=== PATIENT | female | born 1960 | race Caucasian/White ===

== ENCOUNTER 2020-06-28 08:50 | Outpatient (CLI) | payer OTHER ==
[2020-06-28 09:09] LABS: Basophils % (Auto) 0.5 % (0.0-1.8); Eosinophils # (Auto) 0.1 K/mm3 (0.0-0.4); Eosinophils % (Auto) 1.4 % (0.0-4.3); Hematocrit 38.2 % (30.3-42.9); Hemoglobin 13.3 gm/dl (10.1-14.3); Lymphocytes # (Auto) 2.4 K/mm3 (1.2-5.4); Lymphocytes % (Auto) 30.6 % (13.4-35.0); Mean Corpuscular HGB Conc 35 % (30-34); Mean Corpuscular Volume 92 fl (79-97); Monocytes # (Auto) 0.6 K/mm3 (0.0-0.8); Monocytes % (Auto) 7.8 % (0.0-7.3); Platelet Count 327 K/mm3 (140-440); Red Blood Count 4.14 M/mm3 (3.65-5.03); Red Cell Distribution Width 13.2 % (13.2-15.2)
[2020-06-28 09:39] LABS: Alanine Aminotransferase 19 units/L (7-56); Albumin 4.1 g/dL (3.9-5); Blood Urea Nitrogen 15 mg/dL (7-17); Calcium 8.9 mg/dL (8.4-10.2); Chol/HDL Ratio 2.66 %; HDL Cholesterol 63 mg/dL (40-59); Hemolysis Index 7; LDL Cholesterol,Direct 110 mg/dL (50-130)
[2020-06-28 09:43] LABS: BUN/Creatinine Ratio 25
== END 2020-06-28 08:51 | disposition home or self-care (01) ==
LOC: LAB 08:50
PROVIDERS: ATTEND Internal Medicine
DX: Z00.00 Encounter for general adult medical examination without abnormal findings (principal); Z13.29 Encounter for screening for other suspected endocrine disorder; Z13.220 Encounter for screening for lipoid disorders; E55.9 Vitamin D deficiency, unspecified; R20.2 Paresthesia of skin
CPT/HCPCS: 36415; 80053; 80061; 82306; 82607; 83036; 84443; 85025

== ENCOUNTER 2020-07-01 09:51 | Outpatient (CLI) | payer OTHER ==
--- NOTE | 2020-07-01 14:45 | Mammography Report ---
DIGITAL SCREENING MAMMOGRAM WITH CAD, 07/01/2020 CLINICAL INFORMATION / INDICATION: Routine screening TECHNIQUE: Digital bilateral 2D mammography was obtained in the craniocaudal and mediolateral obliqu e projections. This examination was interpreted with the benefit of Computer-Aided Detection analysis . COMPARISON: None available FINDINGS: Breast Density: The breasts are extremely dense, which lowers the sensitivity of mammography. No dominant mass, suspicious calcifications, or architectural distortion in either breast. Benign-appearing bilateral calcifications are seen. Small intramammary node is seen on the right. IMPRESSION: No mammographic evidence of malignancy. Follow up recommendation: Routine yearly BI-RADS Category 2: Benign. A "normal" or negative report should not discourage follow up or biopsy of a clinically significant f inding. A written summary of these findings will be mailed to the patient. The patient will be entered into a mammography reporting system which will generate a reminder letter for the patient's next appointmen t at the appropriate interval. The [employer] recommends yearly mammograms starting at age 40 and continuing as l edy as a woman is in good health. Breast MRI is recommended for women with an approximate 20-25% or greater lifetime risk of breast cancer, including women with a strong family history of breast or ova chio cancer or who have been treated for Hodgkin's disease. Signer Name: Alexandro Mack MD Signed: 07/01/2020 2:41 PM Workstation Name: [id number]
== END 2020-07-01 09:52 | disposition home or self-care (01) ==
LOC: SPVWC 09:51
PROVIDERS: ATTEND Internal Medicine
DX: Z12.31 Encounter for screening mammogram for malignant neoplasm of breast (principal); N64.89 Other specified disorders of breast
CPT/HCPCS: 77067

== ENCOUNTER 2020-11-06 11:17 | Outpatient (CLI) | payer OTHER ==
[2020-11-06 12:04] LABS: Blood Urea Nitrogen 13 mg/dL (7-17); Calcium 8.7 mg/dL (8.4-10.2); Hemolysis Index 7
[2020-11-06 12:09] LABS: BUN/Creatinine Ratio 26
== END 2020-11-06 11:18 | disposition home or self-care (01) ==
LOC: LAB 11:17
PROVIDERS: ATTEND Internal Medicine
DX: E87.6 Hypokalemia (principal)
CPT/HCPCS: 36415; 80048

== ENCOUNTER 2020-11-09 15:22 | Emergency (ER) | payer OTHER ==
[2020-11-09] MEDS ORDERED: SODIUM CHLORIDE 0.9% 1000 ML 1,000 ML IV ONE (19:17)
--- NOTE | 2020-11-09 19:18 | Emergency Department Report ---
ED Abdominal Pain HPI - General Chief Complaint: Abdominal Pain Stated Complaint: ABD PAIN Time Seen by Provider: 11/09/20 19:12 Source: patient Mode of arrival: Ambulatory Limitations: No Limitations - History of Present Illness Initial Comments: 60-year-old female presents to the ER today with complaints of upper abdominal pain. She states that her symptoms started last week. She reports associated abdominal bloating. That she has not had any diarrhea, she has not had any nausea or vomiting and she has not been constipated. Last time she had a bowel movement was this morning and it was normal. She denies any melena, hematochezia or mucus in her stool. She denies any associated chest pain or shortness of breath, fever or chills. She is unable to give any modifying factors for her pain. Her past abdominal surgeries include appendectomy and C- sections. She also had a colonoscopy September 2016 and that was normal. MD Complaint: abdominal pain -: week(s) (1) - Related Data Previous Rx's Medication Instructions Recorded Last Taken Type Hyoscyamine Subl [Levsin Sl 0.125 0.125 mg SL Q6HR PRN #12 tab 11/09/20 Unknown Rx TAB] Allergies Allergy/AdvReac Type Severity Reaction Status Date / Time No Known Allergies Allergy Unverified 06/28/20 08:51 ED Review of Systems ROS: Stated complaint: ABD PAIN Other details as noted in HPI Comment: All other systems reviewed and negative Constitutional: denies: chills, fever Eyes: denies: eye pain, eye discharge, vision change ENT: denies: ear pain, throat pain, dental pain, hearing loss, epistaxis, congestion Respiratory: denies: cough, shortness of breath, SOB with exertion, SOB at rest, wheezing Cardiovascular: denies: chest pain, palpitations, dyspnea on exertion, edema, syncope, paroxysmal nocturnal dyspnea Gastrointestinal: abdominal pain. denies: nausea, vomiting, diarrhea, constipation, hematemesis, hematochezia Genitourinary: denies: urgency, dysuria, frequency, hematuria, discharge, abnormal menses, dyspareunia Musculoskeletal: denies: back pain, joint swelling, arthralgia Skin: denies: rash, lesions, change in color, change in hair/nails, pruritus Neurological: denies: headache, weakness, paresthesias, confusion, abnormal gait, vertigo Psychiatric: denies: anxiety, depression, auditory hallucinations, visual hallucinations, homicidal thoughts, suicidal thoughts Hematological/Lymphatic: denies: easy bleeding, easy bruising, swollen glands ED Past Medical Hx - Past Medical History Previous Medical History?: Yes Additional medical history: Abd pain - Surgical History Past Surgical History?: Yes Hx Appendectomy: Yes Additional Surgical History: colonoscopy, Left knee, - Social History Smoking Status: Never Smoker Substance Use Type: None - Medications Home Medications: Home Medications Medication Instructions Recorded Confirmed Last Taken Type Hyoscyamine Subl [Levsin Sl 0.125 0.125 mg SL Q6HR PRN #12 tab 11/09/20 Unknown Rx TAB] ED Physical Exam - General Limitations: No Limitations General appearance: alert, in no apparent distress - Head Head exam: Present: atraumatic, normocephalic, normal inspection - Eye Eye exam: Present: normal appearance, PERRL, EOMI Pupils: Present: normal accommodation - ENT ENT exam: Present: normal exam, mucous membranes moist, TM's normal bilaterally - Neck Neck exam: Present: normal inspection, full ROM - Respiratory Respiratory exam: Present: normal lung sounds bilaterally. Absent: respiratory distress, wheezes, rales, rhonchi - Cardiovascular Cardiovascular Exam: Present: regular rate, normal rhythm, normal heart sounds - GI/Abdominal GI/Abdominal exam: Present: soft, tenderness (Tenderness palpation epigastric, left upper quadrant, left lower quadrant, suprapubic and right lower quadrant areas with mild guarding but no rebound), guarding. Absent: distended, rebound, rigid - Neurological Exam Neurological exam: Present: alert, oriented X3, CN II-XII intact, normal gait - Psychiatric Psychiatric exam: Present: normal affect, normal mood - Skin Skin exam: Present: intact ED Course Vital Signs 11/09/20 16:12 Temperature 98.2 F Pulse Rate 70 Respiratory 18 Rate Blood Pressure 126/68 O2 Sat by Pulse 97 Oximetry ED Medical Decision Making - Lab Data Result diagrams: 11/09/20 21:04 11/09/20 21:04 - Radiology Data Radiology results: report reviewed Patient: ANDREZ SANCHEZ MR# : [id number] : 1960 Acct:[id number] Age/Sex: 60 / F ADM Date: 11/09/20 Loc: ED Attending Dr: Ordering Physician: JESIKA SORTO Date of Service: 11/09/20 Procedure(s): CT abdomen pelvis w con Accession Number(s): [id number] cc: JESIKA SORTO CT abdomen pelvis w con INDICATION / CLINICAL INFORMATION: abdominal pain/bloating. TECHNIQUE: Axial CT imaging of abdomen and pelvis was obtained with IV contrast. Coronal and sagittal reformatted imaging obtained and reviewed. All CT scans at this location are performed using CT dose reduction for ALARA by means of automated exposure control. COMPARISON: None available. FINDINGS: CT abdomen with contrast demonstrates normal appearance of the liver, spleen, pancreas, kidneys, and adrenal glands. Gallbladder is present and grossly unremarkable. No biliary dilatation noted. CT pelvis with contrast shows several fluid-filled nondilated loops of bowel most suggestive of enteritis. The remainder of the GI tract is unremarkable. No evidence for mechanical bowel obstruction. The appendix is not visualized or has been surgically removed. No pelvic mass, free fluid, or focal inflammatory change noted. No pelvic mass, free fluid, or focal inflammatory change noted. Visualized lung bases are clear. No significant acute osseous abnormality noted. IMPRESSION: 1. Multiple nondilated fluid-filled small bowel loops are present mostly th roughout the pelvis in a pattern very suggestive for enteritis. Please correlate with clinical prese ntation and symptoms. 2. No other significant finding. Signer Name: Samanta Edouard MD Signed: 11/09/2020 10:21 PM Workstation Name: [id number] Transcribed By: Dictated By: Samanta Edouard MD Electronically Authenticated By: Samanta Edouard MD Signed Date/Time: 11/09/202220 DD/ 15 TD/TT: - Medical Decision Making All labs reviewed -CBC and CMP unremarkable. Lipase is normal. Urinalysis does not suggest a UTI. CT abdomen pelvis suggests enteritis but otherwise no other significant acute abnormalities. Patient currently resting comfortably in the room. She does not appear to be in any significant distress. She is not toxic or ill-appearing and appears hydrated. Vital signs are stable. Discussed case with Dr Woodruff, we reviewed the CT report, suspect enteritis could be related to viral illness at this time and with normal labs and normal vital signs patient can be discharged home with something for pain. There is no indication for any antibiotics or admission or surgical consult at this time. Discussed results with patient and her son. Discussed diagnosis of enteritis and treatment plan with with them. Recommend that patient follows up closely with her PCP next week. They were given a copy of the CT results to take with him to the doctor's visit. They both expressed understanding of instructions and agree with plan. Patient stable at time of discharge. Critical care attestation.: If time is entered above; I have spent that time in minutes in the direct care of this critically ill patient, excluding procedure time. ED Disposition Clinical Impression: Enteritis Disposition: DC-01 TO HOME OR SELFCARE Is pt being admited?: No Does the pt Need Aspirin: No Condition: Stable Instructions: Viral Gastroenteritis, Adult, [id number], Abdominal Pain (ED) Additional Instructions: Recommend that you increase your water intake, take the Levsin as prescribed to help with abdominal cramps, and I will also recommend a take a probiotic from [id number]. Follow-up closely with your primary care doctor. Return to the ER if your symptoms changes or worsens in any way. Prescriptions: Hyoscyamine Subl [Levsin Sl 0.125 TAB] 0.125 mg SL Q6HR PRN #12 tab PRN Reason: Abdominal cramps Referrals: PRIMARY CARE, [Primary Care Provider] - 3-5 Days Time of Disposition: 22:39
[2020-11-09 21:16] LABS: Basophils % (Auto) 0.3 % (0.0-1.8); Eosinophils # (Auto) 0.1 K/mm3 (0.0-0.4); Eosinophils % (Auto) 1.2 % (0.0-4.3); Hematocrit 35.5 % (30.3-42.9); Hemoglobin 12.4 gm/dl (10.1-14.3); Lymphocytes # (Auto) 2.8 K/mm3 (1.2-5.4); Lymphocytes % (Auto) 40.4 % (13.4-35.0); Mean Corpuscular HGB Conc 35 % (30-34); Mean Corpuscular Volume 92 fl (79-97); Monocytes # (Auto) 0.8 K/mm3 (0.0-0.8); Platelet Count 307 K/mm3 (140-440); Red Blood Count 3.87 M/mm3 (3.65-5.03); Red Cell Distribution Width 13.1 % (13.2-15.2)
[2020-11-09 21:37] LABS: Alanine Aminotransferase 12 units/L (7-56); Albumin 3.7 g/dL (3.9-5); Blood Urea Nitrogen 7 mg/dL (7-17); Calcium 8.4 mg/dL (8.4-10.2); Hemolysis Index 6
[2020-11-09 21:41] LABS: BUN/Creatinine Ratio 18; Bilirubin,Direct < 0.2 mg/dL (0-0.2)
[2020-11-09 21:44] LABS: Bacteria,Urine 1+ /HPF (Negative); WBC,Urine < 1.0 /HPF (0.0-6.0)
[2020-11-09 21:45] LABS: Bilirubin,Urine NEG (Negative); Blood,Urine NEG (Negative); Color,Urine Yellow (Yellow); Protein,Urine <15 mg/dL mg/dL (Negative); Urobilinogen,Urine < 2.0 mg/dL (<2.0)
--- NOTE | 2020-11-09 22:26 | Cat Scan Report ---
CT abdomen pelvis w con INDICATION / CLINICAL INFORMATION: abdominal pain/bloating. TECHNIQUE: Axial CT imaging of abdomen and pelvis was obtained with IV contrast. Coronal and sagittal reformatte d imaging obtained and reviewed. All CT scans at this location are performed using CT dose reduction for ALARA by means of automated exposure control. COMPARISON: None available. FINDINGS: CT abdomen with contrast demonstrates normal appearance of the liver, spleen, pancreas, kidneys, and adrenal glands. Gallbladder is present and grossly unremarkable. No biliary dilatation noted. CT pelvis with contrast shows several fluid-filled nondilated loops of bowel most suggestive of enter itis. The remainder of the GI tract is unremarkable. No evidence for mechanical bowel obstruction. The appendix is not visualized or has been surgically removed. No pelvic mass, free fluid, or focal i nflammatory change noted. No pelvic mass, free fluid, or focal inflammatory change noted. Visualized lung bases are clear. No significant acute osseous abnormality noted. IMPRESSION: 1. Multiple nondilated fluid-filled small bowel loops are present mostly throughout the pelvis in a p attern very suggestive for enteritis. Please correlate with clinical presentation and symptoms. 2. No other significant finding. Signer Name: Samanta Edouard MD Signed: 11/09/2020 10:21 PM Workstation Name: [id number]
[2020-11-09] MEDS ORDERED: HYOSCYAMINE SUBL 0.125 MG TAB SL ONE (22:39)
[2020-11-10 02:03] VITALS: BP 122/62
== END 2020-11-09 23:25 | disposition home or self-care (01) ==
LOC: ED 15:22
DX: K52.9 Noninfective gastroenteritis and colitis, unspecified (principal); Z98.890 Other specified postprocedural states
CPT/HCPCS: 36415; 74177; 80048; 80076; 81001; 83690; 84703; 85025; 96360; 99284; J7030; Q9967

== ENCOUNTER 2021-07-11 11:50 | Outpatient (CLI) | payer OTHER ==
[2021-07-11 13:04] LABS: Basophils % (Auto) 0.6 % (0.0-1.8); Eosinophils # (Auto) 0.1 K/mm3 (0.0-0.4); Eosinophils % (Auto) 1.7 % (0.0-4.3); Hematocrit 39.1 % (30.3-42.9); Hemoglobin 13.1 gm/dl (10.1-14.3); Lymphocytes # (Auto) 2.8 K/mm3 (1.2-5.4); Lymphocytes % (Auto) 36.3 % (13.4-35.0); Mean Corpuscular HGB Conc 34 % (30-34); Mean Corpuscular Volume 92 fl (79-97); Monocytes # (Auto) 0.6 K/mm3 (0.0-0.8); Monocytes % (Auto) 8.2 % (0.0-7.3); Platelet Count 324 K/mm3 (140-440); Red Blood Count 4.25 M/mm3 (3.65-5.03); Red Cell Distribution Width 13.5 % (13.2-15.2)
[2021-07-11 13:21] LABS: Alanine Aminotransferase 13 units/L (7-56); Albumin 4.3 g/dL (3.9-5); Blood Urea Nitrogen 16 mg/dL (7-17); Calcium 8.9 mg/dL (8.4-10.2); Chol/HDL Ratio 2.65 %; HDL Cholesterol 66 mg/dL (40-59); Hemolysis Index 4; LDL Cholesterol,Direct 106 mg/dL (50-130)
[2021-07-11 13:22] LABS: BUN/Creatinine Ratio 32
[2021-07-14 16:25] LABS: Vitamin D, 25-OH, D2 7 ng/mL
== END 2021-07-11 11:51 | disposition home or self-care (01) ==
LOC: LAB 11:50
PROVIDERS: ATTEND Internal Medicine
DX: Z00.00 Encounter for general adult medical examination without abnormal findings (principal); E55.9 Vitamin D deficiency, unspecified; R10.9 Unspecified abdominal pain; R53.83 Other fatigue
CPT/HCPCS: 36415; 80053; 80061; 82306; 84443; 85025

== ENCOUNTER 2021-08-22 11:58 | Outpatient (CLI) | payer OTHER ==
--- NOTE | 2021-08-22 12:58 | XRay Report ---
LEFT ANKLE 3 VIEWS INDICATION: S82.90XA FRACTURE OF UNSPECIFIED LOWER LEG. COMPARISON: None. IMPRESSION: No acute osseous injury is appreciated. There is subtle sclerosis and subchondral cysti c formation in the medial talar dome. This could represent a developing osteochondral defect. Correla te with the patient's clinical presentation. The joint spaces otherwise unremarkable. The soft tissue s are within normal limits. Signer Name: Jed Colorado Jr, MD Signed: 08/22/2021 12:54 PM Workstation Name: [id number]
== END 2021-08-22 11:59 | disposition home or self-care (01) ==
LOC: XRAY 11:58
PROVIDERS: ATTEND Orthopaedic Surgery
DX: S82.90XA Unspecified fracture of unspecified lower leg, initial encounter for closed fracture (principal); X58.XXXA Exposure to other specified factors, initial encounter; Y93.89 Activity, other specified; Y92.89 Other specified places as the place of occurrence of the external cause; Y99.8 Other external cause status